=== PATIENT | male | born 1950 | race Asian ===

== ENCOUNTER 2020-09-07 12:27 | Outpatient (REF) | payer MEDICAID, SELFPAY ==
[2020-09-07 14:26] LABS: Alanine Aminotransferase 38 U/L (0-40); Albumin Level 4.8 g/dL (3.5-5.0); Alkaline Phosphatase 42 U/L (39-117); Anion Gap 13 (12-20); Aspartate Amino Transferase 30 U/L (5-37); Bilirubin Total 1.3 mg/dL (0.0-1.0); Blood Urea Nitrogen 15 mg/dL (9-16); Calcium 9.7 mg/dL (8.4-10.2); Carbon Dioxide 31 mmol/L (22-29); Chloride 99 mmol/L (96-108); Cholesterol 249 mg/dL; Estimated Glomerular Filt Rate 46; Glucose Fasting 111 mg/dL (60-99); HDL Cholesterol 54 mg/dL; LDL Cholesterol Calculated 169 mg/dl; Sodium 139 mmol/L (135-145); Triglycerides 131 mg/dL
[2020-09-07 14:59] LABS: PSA,Total (Free>4and<10) 2.15 ng/mL (0.00-4.00)
== END 2020-09-07 12:28 | disposition home or self-care (01) ==
LOC: HO.HMGCLDS 12:27
PROVIDERS: PCP Internal Medicine; Visit Provider Internal Medicine
DX: I10 Essential (primary) hypertension (principal); Z12.5 Encounter for screening for malignant neoplasm of prostate
CPT/HCPCS: 36415; 80053; 80061; 84153

== ENCOUNTER 2021-03-22 10:50 | Outpatient (REF) | payer MEDICAID, SELFPAY ==
[2021-03-22 13:57] LABS: MANUAL DIFF FLAG NO
[2021-03-22 14:11] LABS: Basophils Percent Auto 0.6 % (0-2); Eosinophils Absolute Auto 0.2 X10*3/uL (0.0-0.4); Eosinophils Percent Auto 3.3 % (0-4); Hemoglobin 16.2 g/dl (14.0-18.0); Imm Gran Abs Auto 0.02 X10*3/uL (0.00-0.03); Imm Gran Pct Auto 0.3 % (0.0-0.4); Lymphocytes Absolute Auto 1.2 X10*3/uL (1.2-4.9); Lymphocytes Percent Auto 19.4 % (20-40); Mean Corpuscular HGB Conc 33.1 g/dl (31.0-36.0); Mean Corpuscular Hemoglobin 29.9 pg (27.0-33.0); Mean Corpuscular Volume 90.6 fL (80-98); Monocytes Absolute Auto 0.4 X10*3/uL (0.1-1.2); Monocytes Percent Auto 6.8 % (2-11); Neutrophils Absolute Auto 4.4 X10*3/uL (2.0-8.3); Neutrophils Percent Auto 69.6 % (45-73); Platelet Count 227 X10*3/uL (160-400); Red Blood Count 5.41 X10*6/uL (4.60-5.80); Red Cell Distribution Width 12.6 % (11.0-16.0); White Blood Count 6.3 X10*3/uL (4.8-10.8)
[2021-03-22 14:13] LABS: Estimated Average Glucose 120 mg/dL; Hemoglobin A1c % 5.8 %
[2021-03-22 14:27] LABS: Alanine Aminotransferase 26 U/L (0-40); Anion Gap 15 (12-20); Aspartate Amino Transferase 26 U/L (5-37); Blood Urea Nitrogen 13 mg/dL (9-16); Calcium 9.3 mg/dL (8.4-10.2); Carbon Dioxide 24 mmol/L (22-29); Chloride 106 mmol/L (96-108); Cholesterol 214 mg/dL; Estimated Glomerular Filt Rate 56; Glucose Fasting 96 mg/dL (60-99); HDL Cholesterol 56 mg/dL; LDL Cholesterol Calculated 139 mg/dl; Potassium 4.9 mmol/L (3.3-5.1); Sodium 140 mmol/L (135-145); Triglycerides 97 mg/dL
[2021-03-22 14:33] LABS: PSA,Total (Free>4and<10) 1.99 ng/mL (0.00-4.00)
== END 2021-03-22 10:51 | disposition home or self-care (01) ==
LOC: HO.HMGCLDS 10:50
PROVIDERS: PCP Internal Medicine; Visit Provider Internal Medicine
DX: Z00.01 Encounter for general adult medical examination with abnormal findings (principal); Z12.5 Encounter for screening for malignant neoplasm of prostate; E78.5 Hyperlipidemia, unspecified; I10 Essential (primary) hypertension; R73.01 Impaired fasting glucose; R35.1 Nocturia
CPT/HCPCS: 36415; 80048; 80061; 83036; 84153; 84450; 84460; 85025

== ENCOUNTER 2021-04-21 15:36 | Outpatient (REF) | payer MEDICAID, SELFPAY ==
--- NOTE | 2021-04-21 17:32 | PFT_ITS ---
The patient had difficulty in understanding about the procedure. According to the best effort to these spirometry findings are as follows: Forced vital capacity and FEV1 are both markedly decreased. MMD31-59 is also markedly decreased. Bronchodilator challenge was not given. The patient could not perform adequate maneuvers for the lung volumes. The patient did perform adequate effort for diffusion capacity and the diffusion capacity is moderately decreased. CONCLUSION: According to the best possible results, the patient has severe obstructive airway disorder. Clinical correlation is recommended. MD STEPHANIE Martínez/SUKI / [id number]
== END 2021-04-21 15:37 | disposition home or self-care (01) ==
LOC: HO.RESP 15:36
PROVIDERS: PCP Internal Medicine; Visit Provider Internal Medicine
DX: R05.9 Cough, unspecified (principal); J44.9 Chronic obstructive pulmonary disease, unspecified
CPT/HCPCS: 94010; 94729

== ENCOUNTER 2022-03-23 09:35 | Outpatient (REF) | payer MEDICAID, SELFPAY ==
[2022-03-23 11:04] LABS: MANUAL DIFF FLAG NO
[2022-03-23 11:27] LABS: Basophils Percent Auto 0.7 % (0-2); Eosinophils Absolute Auto 0.5 X10*3/uL (0.0-0.4); Eosinophils Percent Auto 8.9 % (0-4); Hematocrit 47.2 % (42.0-52.0); Hemoglobin 15.5 g/dl (14.0-18.0); Imm Gran Abs Auto 0.01 X10*3/uL (0.00-0.03); Imm Gran Pct Auto 0.2 % (0.0-0.4); Lymphocytes Absolute Auto 1.3 X10*3/uL (1.2-4.9); Lymphocytes Percent Auto 22.2 % (20-40); Mean Corpuscular HGB Conc 32.8 g/dl (31.0-36.0); Mean Corpuscular Hemoglobin 29.6 pg (27.0-33.0); Mean Corpuscular Volume 90.2 fL (80.0-98.0); Mean Platelet Volume 10.5 fL (9.4-12.4); Monocytes Absolute Auto 0.4 X10*3/uL (0.1-1.2); Monocytes Percent Auto 6.2 % (2-11); Neutrophils Absolute Auto 3.5 x10*3/uL (2.0-8.3); Neutrophils Percent Auto 61.8 % (45-73); Platelet Count 212 X10*3/uL (160-400); Red Blood Count 5.23 X10*6/uL (4.60-5.80); Red Cell Distribution Width 12.9 % (11.0-16.0); White Blood Count 5.6 X10*3/uL (4.8-10.8)
[2022-03-23 11:59] LABS: Alanine Aminotransferase 16 U/L (0-40); Anion Gap 15 (12-20); Aspartate Amino Transferase 18 U/L (5-37); Blood Urea Nitrogen 13 mg/dL (9-16); Calcium 9.4 mg/dL (8.4-10.2); Carbon Dioxide 26 mmol/L (22-29); Chloride 103 mmol/L (96-108); Cholesterol 253 mg/dL; Estimated Glomerular Filt Rate 49; Glucose Fasting 109 mg/dL (60-99); HDL Cholesterol 52 mg/dL; LDL Cholesterol Calculated 176 mg/dl; Potassium 4.2 mmol/L (3.3-5.1); Sodium 140 mmol/L (135-145); Triglycerides 127 mg/dL
[2022-03-23 12:24] LABS: PSA,Total (Free>4and<10) 1.07 ng/mL (0.00-4.00); Vitamin D 25-OH Total 30.3 ng/mL (>30)
== END 2022-03-23 09:36 | disposition home or self-care (01) ==
LOC: HO.HMGCLDS 09:35
PROVIDERS: PCP Internal Medicine; Visit Provider Internal Medicine
DX: E78.5 Hyperlipidemia, unspecified (principal); R73.01 Impaired fasting glucose; I10 Essential (primary) hypertension
CPT/HCPCS: 36415; 80048; 80061; 82306; 84153; 84450; 84460; 85025

== ENCOUNTER 2022-04-19 07:01 | Emergency (ER) | payer MEDICAID, SELFPAY ==
--- NOTE | ~2022-04-19 | XR_ITS ---
EXAMINATION: XR CHEST CLINICAL INFORMATION: Chest pain. COMPARISON: 10/01/2017 chest radiographs. TECHNIQUE: Frontal view of the chest was obtained. FINDINGS: No significant abnormality is noted involving the heart, lungs, mediastinum, bony thorax or soft tissues. XR/XR chest 1V IMPRESSION: No acute cardiopulmonary process.
[2022-04-19 07:06] VITALS: BP 182/120; PULSE 90; O2SAT 99
--- NOTE | 2022-04-19 07:06 | ECG_ITS ---
Test Reason : cp Blood Pressure : / mmHG Vent. Rate : 086 BPM Atrial Rate : 086 BPM P-R Int : 172 ms QRS Dur : 092 ms QT Int : 378 ms P-R-T Axes : 035 -45 015 degrees QTc Int : 452 ms Normal sinus rhythm Left anterior fascicular block Intra-ventricular conduction delay poor R-wave progress in lat leads Abnormal ECG No previous ECGs available Referred By: Generic ED Physician Electronically Signed By:BESSY FREGOSO MD
--- NOTE | 2022-04-19 07:16 | ED_ITS ---
HPI - Chest Pain General Chief Complaint: Chest Pain Stated Complaint: CP Time Seen by Provider: 04/19/22 07:08 Source: patient, EMS and drama director (unable to reach omani quality process engineer, cannot hear quality process engineer on my phone or see the words - attempting to reach his daughter who he is asking for) Mode of arrival: EMS Limitations: other (poor hearing, language issue, attempting to reach daughter - daughter and patient very poor historians) History of Present Illness HPI narrative: 71 yo male with hx of HTN, HLD here with c/o elevated BPs for the past week much worse last night up to 240s. Not compliant with losartan 100mg daily. Took 300mg overnight due to elevated BPs to correct BP. He has chest pain as of this morning but it resolved. He drank coffee all night hasn't slept for a week - stressed out due to needing booster to go to the [facility]. He was given aspirin by EMS VP. Patient admits to losartan non-compliance. MD complaint: chest pain Onset (ago): hour(s) (2) Timing of current episode: now resolved Prior episodes: No Onset: during rest Pain location: substernal Pain radiation: none Severity: mild Quality: heaviness Relieving factors: nothing Exacerbating factors: nothing Context: other (HTN non-compliance) Treatment prior to arrival: aspirin Related Data Previous Rx's Medication Instructions Recorded cetirizine 10 mg tablet 10 mg PO BEDTIME PRN allergy 03/23/22 symptoms #30 tabs clobetasol 0.05 % topical cream 1 appl topical DAILY PRN rash 10 03/23/22 days #30 grams losartan 100 mg tablet 100 mg PO DAILY #90 tabs 03/23/22 amlodipine 5 mg tablet 5 mg PO DAILY #30 tabs 04/19/22 Allergies Allergy/AdvReac Type Severity Reaction Status Date / Time No Known Allergies Allergy Verified 03/23/22 08:58 [No Known Allergies*] Review of Systems Review of Systems: Constitutional : No Weight loss, No Fever, No Chills ENT/Mouth : No sore throat, No Rhinorrhea Eyes: No Eye Pain, No Swelling Cardiovascular : pos Chest Pain, no SOB, no Dyspnea on Exertion, No Orthopnea, No Edema, No Palpitations Respiratory : No Cough, No Sputum Gastrointestinal : no Nausea, No Vomiting, No Diarrhea, No abdominal Pain, No Hematochezia, No Melena Genitourinary : No Dysuria, No Urinary Frequency Musculoskeletal : No joint pain, No Myalgias, No Joint Swelling Skin : No Skin Lesions, No rash Neuro : No Weakness, No Numbness, No Dizziness, No Headache Psych : No Anxiety/Panic, No Depression Heme/Lymph: No Bruising, No Lymphadenopathy Endocrine : No Polyuria, No Polydipsia All other systems reviewed and are negative [facility] Past Medical History Attestation statement: The following information was validated with the patient. Medical History Chronic coughing Dyslipidemia Eczema Environmental and seasonal allergies Essential hypertension Impaired fasting glucose Surgical History Hx of colonoscopy No pertinent past surgical history Family History Family History Father Medical history non-contributory Mother Medical history non-contributory Social History Social History Housing: House Alcohol intake: never Patient Tobacco Use Status: Former Tobacco user Years Smoked: 45 yrs e-Cigarette/Vaping Use: Never Used Advance Directives: No Advance Directives Information Provided: No service: No Current occupational status: unemployed Cognitive needs: No Hearing needs: No Vision needs: No Physical Exam Vital Signs: Vital Signs: Last Vital Signs Temp 96.8 F 04/19/22 07:23 Pulse 67 04/19/22 10:35 Resp 16 04/19/22 10:35 BP 166/98 H 04/19/22 10:35 Pulse Ox 99 04/19/22 10:35 O2 Del Method 04/19/22 10:35 BMI result Body Mass Index 22.4 Appearance: Alert. Oriented X3. No acute distress. Very hard of hearing Eyes: Pupils equal, round and reactive to light. ENT: Pharynx normal. Neck: Normal inspection. Neck supple. CVS: Normal heart rate and rhythm. Pulses normal. Respiratory: No respiratory distress. Breath sounds normal. Abdomen: Soft and non-tender. Skin: Skin warm and dry. Normal skin color. Normal skin turgor. Extremities: No lower extremity edema. No calf ttp Neuro: Oriented X 3. No motor deficit. No sensory deficit. Course Course Course Narrative: two trop flat - BP down stable for DC will start on amlodipine 5mg daily MDM - Chest Pain MDM Narrative Medical decision making narrative: 71 yo male with hx of HTN here with c/o elevated BP and HTN non compliant with medications - up all night drinking coffee. History was very hard to obtain due to hearing loss, language issues and the patient is a poor historian. Will obtain troponin x 2, start on PO amlodipine. Doubt VTE or dissection he appears comfortable. Suspect untreated HTN as cause of symptoms. Lab Data Result diagrams: 04/19/22 07:39 04/19/22 07:39 Labs: Lab Results 04/19/22 04/19/22 04/19/22 Range/Units 07:39 07:39 07:39 WBC 4.6 L (4.8-10.8) X10*3/uL RBC 5.10 (4.60-5.80) X10*6/uL Hgb 15.3 (14.0-18.0) g/dl Hct 45.3 (42.0-52.0) % MCV 88.8 (80.0-98.0) fL MCH 30.0 (27.0-33.0) pg MCHC 33.8 (31.0-36.0) g/dl RDW 12.6 (11.0-16.0) % Plt Count 237 (160-400) X10*3/uL MPV 9.5 (9.4-12.4) fL Immature Gran % (Auto) 0.4 (0.0-0.4) % Neut % (Auto) 76.0 H (45-73) % Lymph % (Auto) 14.8 L (20-40) % [place] % (Auto) 5.7 (2-11) % Eos % (Auto) 2.2 (0-4) % Baso % (Auto) 0.9 (0-2) % Lymph # (Auto) 0.7 L (1.2-4.9) X10*3/uL [place] # (Auto) 0.3 (0.1-1.2) X10*3/uL Eos # (Auto) 0.1 (0.0-0.4) X10*3/uL Baso # (Auto) 0.0 (0.0-0.2) X10*3/uL Abs Immat Gran (auto) 0.02 (0.00-0.03) X10*3/uL Absolute Neuts (auto) 3.5 (2.0-8.3) x10*3/uL Absolute Nucleated RBC 0.000 (0.0-0.012) X10*3/uL Nucleated RBC % (auto) 0.0 (0.0-0.2) /100WBC Sodium 140 (135-145) mmol/L Potassium 4.0 (3.3-5.1) mmol/L Chloride 101 (96-108) mmol/L Carbon Dioxide 25 (22-29) mmol/L Anion Gap 18 (12-20) BUN 8 L (9-16) mg/dL Creatinine 1.37 (0.5-1.4) mg/dL Estim Creat Clear Calc 46.7 Estimated GFR 52 Random Glucose 126 H (60-115) mg/dL Calcium 9.9 (8.4-10.2) mg/dL Magnesium 2.1 (1.6-2.6) mg/dL Total Bilirubin 0.6 (0.0-1.0) mg/dL Direct Bilirubin 0.2 (0.0-0.5) mg/dL AST 21 (5-37) U/L ALT 15 (0-40) U/L Alkaline Phosphatase 41 (39-117) U/L Troponin I High Sens < 3.5 (<3.5-35.0) ng/L Total Protein 7.8 (6.5-8.0) g/dL Albumin 4.7 (3.5-5.0) g/dL Lipase 24 (8-78) U/L COVID-19 (ARABELLA) (Negative) COVID-19 Clin Com 04/19/22 04/19/22 Range/Units 07:39 11:29 WBC (4.8-10.8) X10*3/uL RBC (4.60-5.80) X10*6/uL Hgb (14.0-18.0) g/dl Hct (42.0-52.0) % MCV (80.0-98.0) fL MCH (27.0-33.0) pg MCHC (31.0-36.0) g/dl RDW (11.0-16.0) % Plt Count (160-400) X10*3/uL MPV (9.4-12.4) fL Immature Gran % (Auto) (0.0-0.4) % Neut % (Auto) (45-73) % Lymph % (Auto) (20-40) % [place] % (Auto) (2-11) % Eos % (Auto) (0-4) % Baso % (Auto) (0-2) % Lymph # (Auto) (1.2-4.9) X10*3/uL [place] # (Auto) (0.1-1.2) X10*3/uL Eos # (Auto) (0.0-0.4) X10*3/uL Baso # (Auto) (0.0-0.2) X10*3/uL Abs Immat Gran (auto) (0.00-0.03) X10*3/uL Absolute Neuts (auto) (2.0-8.3) x10*3/uL Absolute Nucleated RBC (0.0-0.012) X10*3/uL Nucleated RBC % (auto) (0.0-0.2) /100WBC Sodium (135-145) mmol/L Potassium (3.3-5.1) mmol/L Chloride (96-108) mmol/L Carbon Dioxide (22-29) mmol/L Anion Gap (12-20) BUN (9-16) mg/dL Creatinine (0.5-1.4) mg/dL Estim Creat Clear Calc Estimated GFR Random Glucose (60-115) mg/dL Calcium (8.4-10.2) mg/dL Magnesium (1.6-2.6) mg/dL Total Bilirubin (0.0-1.0) mg/dL Direct Bilirubin (0.0-0.5) mg/dL AST (5-37) U/L ALT (0-40) U/L Alkaline Phosphatase (39-117) U/L Troponin I High Sens < 3.5 (<3.5-35.0) ng/L Total Protein (6.5-8.0) g/dL Albumin (3.5-5.0) g/dL Lipase (8-78) U/L COVID-19 (ARABELLA) Negative (Negative) COVID-19 Clin Com See Note ECG Data ECG #1: Attestation: I personally reviewed and interpreted this ECG as follows: ECG interpretation date: 04/19/22 ECG interpretation time: 07:28 Interpretation: Rate: 86 Rhythm: NSR [place]: left Normal P waves. Normal ALEC. Normal QRS complex. ST T wave : normal no MARIA L qTC: normal prior studies: no acute ischemia The study has been interpreted contemporaneously by me. . Discharge Plan Discharge Clinical Impression: Atypical chest pain, Essential hypertension Patient Disposition: Home, Self-Care Instructions: Chest Pain (ED), Chronic Hypertension (ED) Additional Instructions: return to ED for any worsening symptoms or concerns CONTINUE LOSARTAN also take amlodipine see your doctor in 1 week Prescriptions: New amlodipine 5 mg tablet 5 mg PO DAILY Qty: 30 0RF No Action cetirizine 10 mg tablet 10 mg PO BEDTIME PRN (Reason: allergy symptoms) Qty: 30 5RF clobetasol 0.05 % cream 1 appl topical DAILY PRN (Reason: rash) 10 Days Qty: 30 0RF losartan 100 mg tablet 100 mg PO DAILY Qty: 90 2RF
[2022-04-19 07:23] VITALS: BP 173/111; PULSE 86; PULSE 87; RESP 18; TEMP 36; TEMP 37; O2SAT 98; O2SAT 99; BMI 22.4
[2022-04-19 07:45] LABS: MANUAL DIFF FLAG NO
--- NOTE | 2022-04-19 07:47 | PC.NURSE ---
unable to get history from patient, cannot see or hear well with the use of translation, daughter called unable to come in due to recent surg. stated she will call back with a better connection
[2022-04-19 07:50] LABS: Basophils Percent Auto 0.9 % (0-2); Eosinophils Absolute Auto 0.1 X10*3/uL (0.0-0.4); Eosinophils Percent Auto 2.2 % (0-4); Hematocrit 45.3 % (42.0-52.0); Hemoglobin 15.3 g/dl (14.0-18.0); Imm Gran Abs Auto 0.02 X10*3/uL (0.00-0.03); Imm Gran Pct Auto 0.4 % (0.0-0.4); Lymphocytes Absolute Auto 0.7 X10*3/uL (1.2-4.9); Lymphocytes Percent Auto 14.8 % (20-40); Mean Corpuscular HGB Conc 33.8 g/dl (31.0-36.0); Mean Corpuscular Volume 88.8 fL (80.0-98.0); Mean Platelet Volume 9.5 fL (9.4-12.4); Monocytes Absolute Auto 0.3 X10*3/uL (0.1-1.2); Monocytes Percent Auto 5.7 % (2-11); Neutrophils Absolute Auto 3.5 x10*3/uL (2.0-8.3); Platelet Count 237 X10*3/uL (160-400); Red Cell Distribution Width 12.6 % (11.0-16.0); White Blood Count 4.6 X10*3/uL (4.8-10.8)
[2022-04-19 08:01] LABS: Alanine Aminotransferase 15 U/L (0-40); Albumin Level 4.7 g/dL (3.5-5.0); Alkaline Phosphatase 41 U/L (39-117); Anion Gap 18 (12-20); Aspartate Amino Transferase 21 U/L (5-37); Bilirubin Direct 0.2 mg/dL (0.0-0.5); Bilirubin Total 0.6 mg/dL (0.0-1.0); Blood Urea Nitrogen 8 mg/dL (9-16); Calcium 9.9 mg/dL (8.4-10.2); Carbon Dioxide 25 mmol/L (22-29); Chloride 101 mmol/L (96-108); Creatinine Clr Calc Pharmacy 46.7; Estimated Glomerular Filt Rate 52; Glucose Random 126 mg/dL (60-115); Lipase 24 U/L (8-78); Magnesium 2.1 mg/dL (1.6-2.6); Sodium 140 mmol/L (135-145); Total Protein 7.8 g/dL (6.5-8.0)
[2022-04-19 08:03] LABS: COVID-19 Test Negative (Negative); IDNOW Serial# 16C4AD1C
[2022-04-19 08:04] LABS: Troponin-I High Sensitivity < 3.5 ng/L (<3.5-35.0)
[2022-04-19] MEDS: amLODIPine Besylate 2.5 MG TABLET 7.5 MG PO (08:30)
[2022-04-19 10:35] VITALS: BP 166/98; PULSE 67; RESP 16; O2SAT 99
[2022-04-19 12:01] LABS: Troponin-I High Sensitivity < 3.5 ng/L (<3.5-35.0)
== END 2022-04-19 13:00 | disposition home or self-care (01) ==
PROVIDERS: Emergency Provider Emergency Medicine; PCP Internal Medicine
DX: R07.89 Other chest pain (principal); I10 Essential (primary) hypertension; Z91.14 Patient's other noncompliance with medication regimen; Z20.822 Contact with and (suspected) exposure to COVID-19; Z79.899 Other long term (current) drug therapy; Z87.891 Personal history of nicotine dependence
CPT/HCPCS: 36415; 71045; 80048; 80076; 83690; 83735; 84484; 85025; 87635; 93005; 99283; 99284

== ENCOUNTER 2023-03-28 10:30 | Outpatient (AMB) | payer MEDICAID, SELFPAY ==
--- NOTE | 2023-03-28 10:47 | A.OFFPC_ITS ---
Vital Signs 03/28/23 10:57 Height 5 ft 7 in Weight 163 lb BMI 25.5 BP 130/80 Blood Pressure Location Lt brachial Position Sitting Pulse 73 Pulse Source Pulse Oximeter Pulse Oximetry (%) 99 Oxygen Delivery Method Room Air Intake Visit Reasons: 6m follow up HTN Intake Note: Pt is here today for his 6mo. f/u HTN Allergies seafood Adverse Reaction (Verified 03/28/23 11:09) hives chicken Adverse Reaction (Uncoded 03/28/23 11:09) hives Medication List - Last Reconciled 03/28/23 by Jen Foley MD amlodipine 5 mg PO DAILY blood pressure monitor As directed cetirizine 10 mg PO BEDTIME PRN losartan 100 mg PO DAILY Tobacco use date assessed: 03/28/23 Fall risk assessment: No Falls in past year Last assessed Fall Risk: 03/28/23 Dental Screening Dental Screen Date: 03/28/23 Did you have a dental visit in the last 12 months?: No Was dental information given to patient?: Patient has dentist HPI 6m follow up HTN HPI Details 72-year-old male with hypertension, dysl ipidemia, recurrent season allergies, here today for her follow-up. He has been compliant with taking his medications currently on amlodipine and lisinopril, needs refills, has not been taking his cetirizine on a regular basis. Still complaining of constant need to clear throat specially in the morning, denies any cough, no shortness of breath, no wheezing reported. He has been referred for pulmonary function testing but was unable to tolerate lung volume maneuver and perform FVC maneuvers directly despite several attempts and different coaching methods. [facility] Medical History Environmental and seasonal allergies Eczema Chronic coughing Dyslipidemia Impaired fasting glucose Essential hypertension Surgical History Hx of colonoscopy No pertinent past surgical history Family History Father Medical history non-contributory Mother Medical history non-contributory Social History Housing: House Alcohol intake: never Patient Tobacco Use Status: Former Tobacco user Years Smoked: 45 yrs e-Cigarette/Vaping Use: Never Used service: No Current occupational status: unemployed Cognitive needs: No Hearing needs: No Vision needs: Yes Questionnaire PHQ-9 Over the last 2 weeks, how often have you been bothered by any of the following problems? 1. Little interest or pleasure in doing things: not at all 2. Feeling down, depressed, or hopeless: not at all 3. Trouble falling or staying asleep, or sleeping too much: not at all 4. Feeling tired or having little energy: several days 5. Poor appetite or overeating: not at all 6. Feeling bad about yourself - or that you are a failure or have let yourself or your family down: not at all 7. Trouble concentrating on things, such as reading the newspaper or watching television: not at all 8. Moving or speaking so slowly that other people could have noticed. Or the opposite - being so fidgety or restless that you have been moving around a lot more than usual: not at all 9. Thoughts that you would be better off or of hurting yourself in some way: not at all Total score: 1 Depression Screening Interpretation: Negative 42963 - PHQ-9 Billing: Yes Source: Developed by Drs. Errol Deleon, Peggy Valente, Abdirizak Pereira and colleagues, with an educational frank from [employer]. Thrive Questionnaire Date Thrive assessed: 03/28/23 I am a: Patient What is your living situation today?: I have a steady place to live Within the past 12 months, did the food you bought not last and you didn't have the money to get more?: Never true Within the past 12 months, did you worry whether your food would run out before you got money to buy more?: Never true Do you have trouble paying for medicines?: No Do you have trouble getting transportation to medical appointments?: No Do you have trouble paying your heating and electricity bill?: No Do you have trouble taking care of your child, family member or friend?: No Do you have trouble with day-to-day activities such as bathing, preparing meals, shopping, managing finances, etc.?: No Are you currently unemployed and looking for a job?: No Are you interested in more education?: No LOWELL-7 AMB Questionnaire LOWELL-7 Date LOWELL - 7 assessed: 03/23/22 Source: Developed by Drs. Errol Deleon, Peggy Valente, Abdirizak Pereira and colleagues, with an educational frank from [employer]. Review of Systems Const Denies anorexia, Denies difficulty sleeping, Denies fever(s), Denies headache(s) and Denies weakness Eyes Denies change in vision ENT Denies dysphagia, Denies dizziness, Denies ear discharge, Denies headache(s), Reports hearing loss, Denies epistaxis, Denies nasal congestion, Denies nasal discharge, Reports post nasal drip, Denies sore throat and Denies throat swelling Card Denies chest pain, Denies lightheadedness and Denies dyspnea Resp Denies chest congestion, Denies hemoptysis, Denies pain on inspiration, Denies dyspnea and Denies wheezing GI Denies abdominal pain, Denies change in bowel habits, Denies dysphagia and Denies heartburn Musc Reports as per HPI Skin/Breast Denies lesions Neuro Denies dizziness, Denies headache(s) and Denies weakness Enzo/Lymph Denies easy bruising Aller/Immun Reports seasonal rhinorrhea, Denies throat swelling and Denies wheezing Physical exam (Primary Care) Vital Signs: Last Vital Signs Pulse 73 03/28/23 10:57 BP 130/80 03/28/23 10:57 Pulse Ox 99 03/28/23 10:57 Oxygen Delivery Method Room Air 03/28/23 10:57 BMI result Body Mass Index 25.5 Tobacco/Smoking Status: Tobacco use Status Tobacco use date assessed 03/28/23 03/28/23 10:56 Patient Tobacco Use Status Former Tobacco user 03/28/23 10:48 e-Cigarette/Vaping Use Never Used 03/28/23 10:48 Depression Screening Interpretation: Negative Thrive Assessment: Date of Thrive Assessment Date Thrive assessed 03/28/23 03/28/23 11:01 Const Other: Alert oriented x3, no acute cardiorespiratory distress noted , normal gait, daughter present during visit Orientation/consciousness: patient oriented x3 HENMT Ears: external ears normal, TM's normal bilaterally and EAC's normal General nose exam: Normal external nose present and No nasal discharge present Face and sinus: Yes face symmetric Mouth: Normal oral and palatal mucosa present, oropharynx normal and moist mucous membranes Teeth and gingiva: multiple restorations and poor dentition Eyes General: appearance normal, both eyes and all related structures Neck Other: Supple, no lymphadenopathy, thyroid gland nonpalpable Resp Auscultation: clear to auscultation bilaterally Cardio Other: S1-S2 present regular rate and rhythm no murmurs GI Inspection: Yes normal to inspection Palpation (GI): Soft to palpation, nontender, no guarding and no masses Auscultation: normal bowel sounds Neuro General: patient oriented x3, gait normal, moves all extremities, Normal light touch and pain sensation, no focal motor deficits and CN's II-XI intact bilaterally Extrem General: Yes full ROM, Yes no joint enlargement, Yes no pedal edema, Yes no calf tenderness and Yes normal gait Assessment and Plan Assessment & Plan (1) Impaired fasting glucose: Code(s): R73.01 - Impaired fasting glucose Plan: Fasting blood sugar ordered today. Your fasting blood sugars elevated above 100 mg/dL. Impaired glucose metabolism O2 at risk for developing diabetes mellitus type 2, as well as heart attack and stroke later on. Lifestyle changes at just weight loss, healthy eating habits, and regular exercise are important, and can prevent the progression to diabetes (2) Essential hypertension: Code(s): I10 - Essential (primary) hypertension Plan: Blood pressure at goal of less than 130/80. Continue with amlodipine and lisinopril. Reinforced importance of following a low sodium diet, getting regular exercise, and lowering stress levels. (3) Dyslipidemia: Code(s): E78.5 - Hyperlipidemia, unspecified Plan: Fasting lipid panel ordered. Stressed importance of adherence to low-cho lesterol diet and regular exercise, at least 30 minutes 3 to 4 times a week. Advised patient to make healthy food choices, eat more fruits, vegetables, whole grains, wild caught fish and low-fat dairy. Limit amount of meat and fried or fatty food products, as well as processed foods and fast foods. (4) Environmental and seasonal allergies: Code(s): J30.89 - Other allergic rhinitis Plan: Advised to take cetirizine 10 mg 1 tablet at bedtime Orders: Orders Basic Metabolic Panel Fasting Today E78.5 - Hyperlipidemia, unspecified, I10 - Essential (primary) hypertension, J30.89 - Other allergic rhinitis, R73.01 - Impaired fasting glucose PSA,Total (Free>4and<10) Today E78.5 - Hyperlipidemia, unspecified, I10 - Essential (primary) hypertension, J30.89 - Other allergic rhinitis, R73.01 - Impaired fasting glucose, Z12.5 - Encounter for screening for malignant neoplasm of prostate Lipid Panel Today E78.5 - Hyperlipidemia, unspecified, I10 - Essential (primary) hypertension, J30.89 - Other allergic rhinitis, R73.01 - Impaired fasting glucose Alanine Aminotransferase Today E78.5 - Hyperlipidemia, unspecified, I10 - Essential (primary) hypertension, J30.89 - Other allergic rhinitis, R73.01 - Impaired fasting glucose Aspartate Amino Transferase Today E78.5 - Hyperlipidemia, unspecified, I10 - Essential (primary) hypertension, J30.89 - Other allergic rhinitis, R73.01 - Impaired fasting glucose Vitamin D 25-OH Total Today E78.5 - Hyperlipidemia, unspecified, I10 - Essential (primary) hypertension, J30.89 - Other allergic rhinitis, R73.01 - Impaired fasting glucose Medications: Refilled amlodipine 5 mg PO DAILY 90 tabs 2RF cetirizine 10 mg PO BEDTIME PRN 90 tabs 3RF allergy symptoms losartan 100 mg PO DAILY 90 tabs 1RF I10 - Essential (primary) hypertension Coding Level of Care Code Est Pt Level 4 (28997) Diagnoses Impaired fasting glucose R73.01 Essential hypertension I10 Dyslipidemia E78.5 Environmental and seasonal allergies J30.89
[2023-03-28 10:57] VITALS: BP 130/80; PULSE 73; O2SAT 99; BMI 25.5
== END 2023-03-28 15:16 | disposition home or self-care (01) ==
PROVIDERS: Visit Provider Internal Medicine
DX: R73.01 Impaired fasting glucose (principal); I10 Essential (primary) hypertension; E78.5 Hyperlipidemia, unspecified; J30.89 Other allergic rhinitis
CPT/HCPCS: 99214